=== PATIENT | female | born 1995 | race African-American/Black ===

== ENCOUNTER 2016-04-23 19:12 | Emergency (ER) | payer MEDICAID ==
[~2016-04-23] VITALS: Ht 162.6 cm; Wt 85.0 kg
[2016-04-23] MEDS ORDERED: KETOROLAC 60MG/2ML VIAL IM ONE (20:00)
[2016-04-23] MEDS ORDERED: PENICILLIN G BENZATHINE 1,200,000 UNITS/2ML SYR IM ONE (20:00)
[2016-04-23] MEDS ORDERED: ONDANSETRON 4MG ODT PO ONE (20:00)
[2016-04-23 20:20] VITALS: BP 145/83
== END 2016-04-23 21:04 | disposition home or self-care (01) ==
LOC: ER 19:13
DX: J02.8 Acute pharyngitis due to other specified organisms (principal); B96.89 Other specified bacterial agents as the cause of diseases classified elsewhere; J45.909 Unspecified asthma, uncomplicated
CPT/HCPCS: 96372; 99284; J0561; J1885; Q0162

== ENCOUNTER 2024-03-11 11:17 | Emergency (ER) | payer MEDICAID ==
[~2024-03-11] VITALS: Ht 162.6 cm; Wt 73.0 kg
[2024-03-11 11:21] VITALS: O2SAT 100
[2024-03-11 12:07] LABS: CHLORIDE 100 mEq/L (98-107); POTASSIUM 3.6 mEq/L (3.5-5.1); SODIUM 132 mEq/L (136-145)
[2024-03-11 12:08] LABS: CARBON DIOXIDE 24 mEq/L (21-32)
[2024-03-11 12:09] LABS: CALCIUM 9.4 mg/dL (8.7-10.4)
[2024-03-11 12:13] LABS: CREATININE 0.5 mg/dL (0.6-1.0); GLUCOSE 83 mg/dL (70-105)
[2024-03-11] MEDS: FAMOTIDINE 20MG/2ML VIAL IV STA (12:13)
[2024-03-11] MEDS: SODIUM CHLORIDE 0.9% 1,000 ML IV ONE (12:13)
[2024-03-11] MEDS: ONDANSETRON HCL 4MG/2ML INJ IV STA (12:13)
[2024-03-11] MEDS: ACETAMINOPHEN 325MG TABLET PO STA (12:13)
[2024-03-11 12:15] LABS: ALANINE AMINOTRANSFERASE 18 IU/L (10-49); ALBUMIN 4.4 g/dL (3.2-4.8); ASPARTATE AMINOTRANSFERASE 29 IU/L (<34)
[2024-03-11 12:16] LABS: BILIRUBIN TOTAL 0.3 mg/dL (0.1-1.0); PROTEIN TOTAL 7.9 g/dL (6.0-8.3)
[2024-03-11 12:20] LABS: BASOPHILS % 0.3 % (0.0-2.0); DIFFERENTIAL COMMENT 0; EOSINOPHILS % 0.2 % (0.0-5.0); HEMATOCRIT. 36.5 % (36.0-48.0); HEMOGLOBIN. 12.3 g/dL (12.0-16.0); LYMPHOCYTES % 15.8 % (20.0-50.0); MEAN CORPUSCULAR HEMOGLOBIN 29.8 pg (28.0-32.0); MEAN CORPUSCULAR HGB CONC 33.7 g/dL (31.0-37.0); MEAN CORPUSCULAR VOLUME 88.4 fL (81.0-99.0); MEAN PLATELET VOLUME 9.3 fl (7.4-10.4); MONOCYTES % 12.2 % (2.0-8.0); NEUTROPHILS % 71.5 % (40.0-76.0); PLATELET 262 x1000/uL (130-400); RED BLOOD CELL COUNT 4.13 mill/uL (4.2-5.4); RED CELL DISTRIBUTION WIDTH 14.5 % (11.6-14.6)
[2024-03-11 12:23] LABS: BILIRUBIN DIRECT < 0.1 mg/dL (<=3.0); TROPONIN I HIGH SENSITIVITY < 4 ng/L (3.0-34); UREA NITROGEN BLOOD < 5 mg/dL (9-23)
[2024-03-11] MEDS: MORPHINE SULFATE 4 MG/ML INJ (FOR IV/IM USE) IV ONE (12:27)
[2024-03-11 12:38] LABS: PROTHROMBIN TIME 10.9 sec (9.6-11.0)
[2024-03-11 14:00] LABS: CLARITY URINE CLEAR (CLEAR); COLOR URINE YELLOW (YELLOW); GLUCOSE URINE NEGATIVE (NEGATIVE); KETONES URINE 2+ (NEGATIVE); LEUKOCYTE ESTERASE URINE NEGATIVE (NEGATIVE); NITRITE URINE NEGATIVE (NEGATIVE); OCCULT BLOOD URINE NEGATIVE (NEGATIVE); PH URINE 6.5 (4.5-8.0); PROTEIN URINE TRACE (NEGATIVE); SPECIFIC GRAVITY URINE 1.013 (1.005-1.030)
[2024-03-11 14:14] LABS: BACTERIA URINE 1+; RBC URINE 0-2 /hpf (0-2); SQUAMOUS EPITHELIAL CELL URINE 2+ /lpf (RARE/1+); YEAST URINE NONE SEEN
[2024-03-11 15:46] LABS: TROPONIN I HIGH SENSITIVITY < 4 ng/L (3.0-34)
[2024-03-11] MEDS: CEFTRIAXONE 1GM/50ML 50 ML IV SCH (17:15)
[2024-03-11] MEDS ORDERED: CEPH500T MT (17:16)
[2024-03-11 18:09] VITALS: BP 124/80; PULSE 69; RESP 18; TEMP 36.9; O2SAT 100
== END 2024-03-11 18:13 | disposition home or self-care (01) ==
LOC: ER 11:17
DX: O99.512 Diseases of the respiratory system complicating pregnancy, second trimester (principal); J18.9 Pneumonia, unspecified organism; Z3A.16 16 weeks gestation of pregnancy; O98.512 Other viral diseases complicating pregnancy, second trimester; Z20.822 Contact with and (suspected) exposure to COVID-19; I49.9 Cardiac arrhythmia, unspecified
CPT/HCPCS: 99285; 96365; 96375; 76805; 71045; 96361; 87426; 80076; 80048; 81003; 83605; 83690; 85025; 85610; 87040; 87086; 84484; 87804 ×2; 36415; 93005; J0696; J3490; J2405; J2270; J7030; A4606